=== PATIENT | female | born 1965 | race Caucasian/White ===

== ENCOUNTER 2018-02-20 14:07 | Emergency (ER) | payer BC ==
--- OUTSIDE RECORDS SUMMARY | 2018-02-20 14:32 | XMS REPORT ---
:1965 External Reference #:[id number] Author Organization [facility] Address [address] [place] [address] Phone [phone] Care Team Providers Name Role Phone Leticia Padilla M.D. 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 Primary Care Physician Unavailable Payers Type Date Identification Numbers Payment Provider Subscriber Commercial Effective: Policy Number: BC/BS Of GIULIANO Rogelio Lunsford Juvencoi 2017 [id number] PayID: [id number] [place] [id number] Problems Date Description Provider Status Onset: 10/04/2017 Type II diabetes mellitus Nilam Stack Active uncontrolled Onset: 10/04/2017 Major depressive disorder Leticia Padilla M.D. Active Onset: 10/04/2017 Obstructive sleep apnea syndrome Leticia Padilla M.D. Active Onset: 11/14/2017 Recurrent major depressive episodes Leticia Padilla M.D. Active Onset: 11/14/2017 Obesity Leticia Padilla M.D. 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 Cigarette Use Former Cigarette Smoker quit 2011 ETOH Use Occasional Recreational Drug Use Denies Drug Use Smoking Nonsmoker Daily Caffeine Some Caffeine Exercise Type/Frequency talking about going to gym walks in good weather Sun Exposure Uses sunscreen Seat Belt/Car Seat Always uses seat belt Personal Habits Text no guns in home Allergies, Adverse Reactions, Alerts Date Description Reaction Status Severity Comments 09/07/2017 NKDA active Medications Medication Date Status Form Strength Qnty SIG Indications Ordering Provider BD Disp 09/16/ Active Misc 31GX1/2" 1Box for use with Sunita [place] 2018 lantus solostar Jas, pen e11.9 last 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 evening Freestyle 09/13/ Active Device 1unit testing every Jenna Lite Blood 2018 s day or as Ryland, Glucose directed dx: Melissa-C Monitoring diabetes e11.9 System Freestyle 09/13/ Active Strips 1Box for blood sugar Jenna Lite Test 2018 [facility] as directed dx Afnp-C e11.9 last office visit 09/13/17 Wellbutrin 09/07/ Active Tablets ER 150mg 60tab take 1 by mouth [facility] 2017 12HR s twice daily Laurel, M.D. Melatonin ER 09/07/ Active Tablets ER 10mg 30tab 1 by mouth Arlene 2018 s every evening Kitty Chaidez NP Potassium 09/07/ Active Tablets 99mg 1 by mouth Jenna 2017 every day Nilam Marcelino Effexor XR 09/07/ Active Caps ER 37.5mg 30cap 1 by mouth Leticia 2017 24HR s every in the Laurel, morning M.D. Effexor XR 09/07/ Active Caps ER 150mg 30cap 1 by mouth Leticia 2017 24HR s every at night Laurel, M.D. Calcium 0000/ Active Tablets 300-300mg 1 by mouth Unknown Magnesium 0000 every day 750 Vitamin D3 0000/ Active Capsules 2000Unit 1 by mouth Unknown 0000 every day Echinacea / Active Capsules 400mg 1 by mouth Unknown 0000 twice daily Zantac 75 0000/ Active Tablets 75mg 1 tablet by Unknown 0000 mouth twice daily Metformin 00/ Active Tablets 1000mg 60tab take 1tab by Leticia HCL 0000 s mouth twice a Laurel, day with meals M.D. BD Disp 09/14/ Hx Misc 30G X 1Box for use with Sunita [place] 2017 - 07/26" lantus solostar Jas, 09/16/ pen e11.9 last AVIATION ORDNANCE OFFICER 2017 seen 09/13/17 BD Disp 09/13/ Hx Misc 25G X 1Box for use with Jenna [place] 2017 - 11/29" lantus solostar Ryland, 09/14/ Afnp-C 2017 Glipizide 09/07/ Hx Tablets 10mg 180ta 1 by mouth Jenna 2017 - twice a day [facility], 09/13/ Afnp-C 2017 Metformin 09/07/ Hx Tablets 1000mg 180ta take 1 07/26 Jenna HCL 2017 - tablets by [facility], 09/13/ mouth every Am, np-2017 1 tablet every PM Immunizations CPT Code Status Date Vaccine Lot # [id number] Given 09/02/2015 Influenza vac quadrivalent preservative free 3yrs and up 97716 Given 06/08/2012 Influenza vac quadrivalent preservative free 3yrs and up 19544 Given 02/29/2012 Tdap Tetanus, W Pertussis 25255 Given 10/16/2003 DT Immunization Vital Signs Date Vital Result Comment 01/23/2018 BP Systolic 136 mmHg BP Diastolic 60 mmHg Heart Rate 96 /min Body Temperature 97.9 F Respiratory Rate 16 /min Height 61 inches 5'1" stated 11/14/17 Weight 234.38 lb BMI (Body Mass Index) 44.3 kg/m2 11/14/2017 BP Systolic 138 mmHg BP Diastolic 80 mmHg Heart Rate 78 /min Body Temperature 97.9 F Respiratory Rate 16 /min Height 61 inches stated 11/14/17 Weight 233.12 lb BMI (Body Mass Index) 44.0 kg/m2 09/13/2017 BP Systolic 110 mmHg BP Diastolic 76 mmHg Heart Rate 68 /min Body Temperature 97.5 F Weight 238.25 lb 09/07/2017 BP Systolic 124 mmHg BP Diastolic 82 mmHg Heart Rate 92 /min Body Temperature 97.7 F Respiratory Rate 16 /min Weight 239.25 lb Results Test Date Test Result H/L Range Note Comprehensive Metabolic Prof 01/16/2018 Sodium 139 mEq/L 134-149 Potassium 4.9 mEq/L 3.6-5.5 Chloride 100 mEq/L 94-112 Carbon Dioxide 25 mEq/L 21-32 Glucose 229 mg/dL High 70-105 1 BUN 21 mg/dL 6-26 Creatinine 0.7 mg/dL 0.6-1.4 BUN/Creat Ratio 30.0 CALC 8.0-36.0 Calcium 9.5 mg/dL 8.6-10.2 Total Protein 6.5 g/dL 6.4-8.3 Albumin 4.1 g/dL 3.8-5.5 Globulin 2.4 g/dL 2.0-4.8 A/G Ratio 1.7 CALC 0.6-2.3 Alk. Phosphatase 82 U/L 30-110 Alt (SGPT) 16 U/L 7-35 Ast (Sgot) 12 U/L 5-34 Total Bilirubin 0.4 mg/dL 0.2-1.3 GFR Non- >60 ml/min/1.73m^ >=60 GFR >60 ml/min/1.73m^ >=60 Lipid Profile 01/16/2018 Cholesterol 164 mg/dL 120-200 Triglycerides 205 mg/dL High 30-200 HDL Cholesterol 49 mg/dL 30-85 LDL (Calculated) 74 CALC 0-129 VLDL Cholesterol 41 mg/dL 0-50 HDL Risk Factor 3.3 CALC 0.0-4.4 Laboratory test finding 01/16/2018 LDL, Direct 85 mg/dL 0-130 TSH 3.77 mIU/L 0.50-6.00 CBC Electronic Fma 01/16/2018 WBC 10.6 x10^3/UL High 4.0-10.0 RBC 5.56 x10^6/UL 3.93-6.00 HGB 15.1 g/dL 12.0-17.0 HCT 46 % 35-50 MCV 83.3 fL 80.0-95.0 MCH 27.2 pg 25.6-32.2 MCHC 32.6 g/dL 32.2-36.0 RDW-CV 13.3 % 11.6-14.4 PLT 340 x10^3/UL 163-400 MPV 10.0 fL 9.4-12.4 Jaz# 6.21 x10^3/UL High 1.56-6.13 Lymph# 3.36 x10^3/UL 1.18-3.74 Dakota# 0.68 x10^3/UL 0.24-0.82 Eos # 0.3 x10^3/UL 0.0-0.5 Baso # 0.05 x10^3/UL 0.01-0.08 Jaz% 58.6 % 34.0-70.0 Lymph % 31.8 % 20.0-52.0 Dakota% 6.4 % 5.0-12.0 Eos% 2.4 % 0.7-7.0 Baso% 0.5 % 0.1-1.2 Laboratory test finding 01/16/2018 Hemoglobin A1c (Fma) 10.4 % High 4.1- 5.7 Laboratory test finding 10/11/2017 Hemoglobin A1c (Fma) 11.7 % High 4.1- 5.7 Glucose Serum 388 High 70-105 Laboratory test finding 09/28/2017 Surgical Interface SEE RESULT BELOW 2 Order Comprehensive Metabolic 09/07/2017 Sodium 139 mEq/L 134-149 Prof Potassium 4.5 mEq/L 3.6-5.5 Chloride 99 mEq/L 94-112 Carbon Dioxide 27 mEq/L 21-32 Glucose 511 mg/dL High 70-105 3 BUN 18 mg/dL 6-26 Creatinine 0.6 mg/dL 0.6-1.4 BUN/Creat Ratio 30.0 CALC 8.0-36.0 Calcium 9.3 mg/dL 8.6-10.2 Total Protein 7.0 g/dL 6.4-8.3 Albumin 4.1 g/dL 3.8-5.5 Globulin 2.9 g/dL 2.0-4.8 A/G Ratio 1.4 CALC 0.6-2.3 Alk. Phosphatase 78 U/L 30-110 Alt (SGPT) 21 U/L 7-35 Ast (Sgot) 17 U/L 5-34 Total Bilirubin 0.3 mg/dL 0.2-1.3 GFR Non- >60 ml/min/1.73m^ >=60 GFR >60 ml/min/1.73m^ >=60 Lipid Profile 09/07/2017 Cholesterol 187 mg/dL 120-200 Triglycerides 578 mg/dL High 30-200 HDL Cholesterol 35 mg/dL 30-85 LDL (Calculated) 36 CALC 0-129 VLDL Cholesterol 116 mg/dL High 0-50 HDL Risk Factor 5.3 CALC High 0.0-4.4 Laboratory test finding 09/07/2017 LDL, Direct 86 mg/dL 0-130 Laboratory test finding 09/07/2017 Hemoglobin A1c (Fma) 11.6 % High 4.1- 5.7 CBC Electronic (Fma) 09/07/2017 WBC 12.0 High 3.6-9.6 RBC 5.51 3.90-5.70 Hemoglobin (Fma/CMC/CTX) 15.0 g/dL 12.1 - 17.2 Hematocrit (Fma/CMC/CTX) 45.9 % 36.1 - 50.3 Platelets 306 10^3/ul 150-400 Lymph% 35.8 % 17.0-48.0 Mixed% 5.2 Neutrophils % 59.0 Mean Corpuscular Vol 83 82.2-97.4 Mean Corpuscular Hemoglobin 27.3 Low 27.6-33.3 Mean Corpuscular Hemo Concen 33.0 32.0-36.0 RDW 13.9 High 11.6-13.7 Mean Platelet Volume 7.6 5.5-11.0 1 RESULTS VERIFIED BY REPEAT ANALYSIS 2 SEE RESULT BELOW Name: ROGELIO HENNING : [address]: Linnette Mike DO Acct: [id number] Unit: [id number] AGE: 51 Location: ENDO Re09/28/17 SEX: F Status: DEP REF SPEC: [id number] SABRINA: 09/28/17-1221 [facility] DR: Linnette Mike DO REQ: [id number] RECD: 09/28/17-6886 STATUS: BETI CAM DR: Leticia Zaman MD _ ORDERED: LEVEL 4 FINAL DIAGNOSIS Colon, ascending, biopsy: -- Tubular adenoma. -- No high grade dysplasia or malignancy. CLINICAL HISTORY Screening/Surveillance for malignancy in asymptomatic patient. POST-OPERATIVE DIAGNOSIS 5 mm ascending colon polyp; rare scattered diverticulosis; internal hemorrhoids. Conclusions/Plan: 5-10 years depending on pathology GROSS DESCRIPTION The specimen is received in formalin labeled, Ascending Colon Polyp, and consists of three speckled saxena-white irregular to polypoid soft tissue fragments ranging from 0.2 x 0.2 x 0.1 cm to 0.8 x 0.3 x 0.2 cm which are entirely submitted in one cassette. Signed (signature on file) Harpreet Haley MD 132[address] END OF REPORT DEPARTMENT OF PATHOLOGY, [address] [place] [address] Harpreet Haley M.D. Director [facility] # [id number] 3 RESULTS VERIFIED BY REPEAT ANALYSIS Procedures Date CPT Code Description Status 10/10/2017 Mammogram Completed 09/28/2017 Colonoscopy Completed Encounters Type Date Location Provider CPT E/M Dx Office Visit 11/14/2017 7:30p Main Office Leticia Padilla M.D. 71005 E11.65 E66.9 E78.1 F33.9 G47.33 Office Visit 09/13/2017 4:15p Main Office Nilam Stack 84289 E11.65 Office Visit 09/07/2017 3:15p Main Office Nilam Stack 10426 Z00.00 E11.9 E78.1 Plan of Care Future Appointment(s):05/02/2018 9:00 am - Nilam Stack at Main Zwahtu9504/25/2018 8:00 am - Leticia Padilla M.D. 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 If pap is normal, next PAP is due in 3-5 years. Recommend having annual mammogram, regularbreast and pelvic exams.E11.65 Type 2 diabetes mellitus with hyperglycemiaNew Labs:Comp Metabolic-ALL Lab CompaniLipid Panel-ALL Lab CompaniesHemoglobin A1c (Fma)Comments:Recommend yearly diabetic eye and foot exams, and check on blood pressure periodically. Goal blood sugar is less than 140 in the morning or A1c less than 7. Recommend monitoring portion size, decreased carbohydrate intake (breads, pasta , rice, candy, desserts, and sweetened beverages/alcohol) and routine daily exercise.Follow up:3 mo fasting labs [id number] Obesity, unspecifiedComments: Counseled on heart healthy diet such as Mediterranean diet. Eat protein and vegetables first then carbohydrates last. Get at least 150 minutes of moderate aerobic activity or 75 minutes of vigorous aerobic activity a week, or a combination of moderate and vigorous activity. General goal of 30 minutes of physical activity a day.F33.9 Major depressive disorder, recurrent, unspecifiedComments:stable on regimenAllComments:~B_~U_Medication Management~b_~ u_ Patient Understands medications she's taking? Yes No Are there Barriers to Adherence? Yes No Has the patient been asked about herbal supplements and therapies, and OTC meds? Yes No
[2018-02-20] MEDS ORDERED: Ibuprofen TAB* 600 MG PO ONE (14:46)
--- NOTE | 2018-02-20 14:52 | ED ---
Lower Extremity - HPI Summary HPI Summary: C/o right heel pain, that occasionally radiates up right posterior lower leg x 2 months. Heel pain is intermittent, but worse and more constant past few days. Pain worse in am when pt first gets out of bed, but pt states sometimes gets better with ambulation, sometimes worse. Pt unaware of pattern to pain onset. Denies trauma, fever, N/V, loss of sensation or function, cp, sob, abdo pain, hx of blood clots, estrogen intake, hx of CA, recent surgery or trauma, smoking. Med hx = DM2, depression. No anticoag. - History of Current Complaint Chief Complaint: EDSoftTissueLowExtr Stated Complaint: RT LOWER EXTREMITY PAIN Time Seen by Provider: 02/20/18 14:38 Hx Obtained From: Patient Mechanism Of Injury: Unknown Onset of Pain: Days Onset/Duration: Weeks Severity Initially: Mild Severity Currently: Moderate Pain Intensity: 6 Pain Scale Used: 0-10 Numeric Timing: Intermittent Location: Is Discrete @ Character Of Pain: Throbbing Aggravating Factor(s): Standing, Ambulation, Weight Bearing Alleviating Factor(s): Rest Able to Bear Weight: Yes - Risk Factors DVT Risk Factors: Negative Septic Arthritis Risk Factor: Immunosuppressed - Allergies/Home Medications Allergies/Adverse Reactions: Allergies Allergy/AdvReac Type Severity Reaction Status Date / Time No Known Allergies Allergy Verified 02/28/16 09:53 PMH/Surg Hx/FS Hx/Imm Hx Endocrine/Hematology History: Reports: Hx Diabetes History: Denies: Hx Dialysis Neurological History: Denies: Hx CVA - Surgical History Surgery Procedure, Year, and Place: bilateral carpal tunnel. dental surgery - Immunization History Immunizations Up to Date: Yes Infectious Disease History: No Infectious Disease History: Denies: Traveled Outside the [place] in Last 30 Days - Family History Known Family History: Positive: None - Social History Alcohol Use: Rare Substance Use Type: Reports: None Smoking Status (MU): Former Smoker Type: Cigarettes Review of Systems Constitutional: Negative Eyes: Negative ENT: Negative Cardiovascular: Negative Respiratory: Negative Gastrointestinal: Negative Genitourinary: Negative Musculoskeletal: Other Skin: Negative Neurological: Negative Psychological: Normal All Other Systems Reviewed And Are Negative: Yes Physical Exam - Summary Physical Exam Summary: NO erythema, ecchymosis, deformity, swelling, extra warmth to right foot, ankle , calf or knee. Mild tenderness to medial and lateral edges of heel. No pain with palpation of plantar surface of foot. No pain with palpation of achilles tendon. Achilles tendon intact. Normal jennings test. Mild tenderness to right calf with palpation posteriorly, and medially. PMS intact distally. Triage Information Reviewed: Yes Vital Signs On Initial Exam: Initial Vitals Temp Pulse Resp BP Pulse Ox 98.1 F 98 18 155/96 99 02/20/18 14:11 02/20/18 14:11 02/20/18 14:11 02/20/18 14:11 02/20/18 14:11 Vital Signs Reviewed: Yes Appearance: Positive: Well-Appearing Skin: Positive: Warm Head/Face: Positive: Normal Head/Face Inspection Eyes: Positive: Normal Neck: Positive: Supple Respiratory/Lung Sounds: Positive: Clear to Auscultation Cardiovascular: Positive: Normal Abdomen Description: Positive: Nontender Musculoskeletal: Positive: Normal Neurological: Positive: Normal Psychiatric: Positive: Normal AVPU Assessment: Alert - Janes Coma Scale Best Eye Response: 4 - Spontaneous Best Motor Response: 6 - Obeys Commands Best Verbal Response: 5 - Oriented Coma Scale Total: 15 Diagnostics - Vital Signs Vital Signs Temp Pulse Resp BP Pulse Ox 02/20/18 14:11 98.1 F 98 18 155/96 99 - Laboratory Lab Statement: Any lab studies that have been ordered have been reviewed, and results considered in the medical decision making process. - Radiology heel Xray Interpretation: No Acute Changes - heel spur Radiology Interpretation Completed By: Radiologist Lower Extremity Course/Dx - Course Course Of Treatment: C/o right heel pain, that occasionally radiates up right posterior lower leg x 2 months. Heel pain is intermittent, but worse and more constant past few days. Pain worse in am when pt first gets out of bed, but pt states sometimes gets better with ambulation, sometimes worse. Pt unaware of pattern to pain onset. Denies trauma, fever, N/V, loss of sensation or function , cp, sob, abdo pain, hx of blood clots, estrogen intake, hx of CA, recent surgery or trauma, smoking. Med hx = DM2, depression. No anticoag. NO erythema , ecchymosis, deformity, swelling, extra warmth to right foot, ankle, calf or knee. Mild tenderness to medial and lateral edges of heel. No pain with palpation of plantar surface of foot. No pain with palpation of achilles tendon. Achilles tendon intact. Normal jennings test. Mild tenderness to right calf with palpation posteriorly, and medially. PMS intact distally. Ibuprofen and ice for pain. Follow up with podiatry. - Diagnoses Provider Diagnoses: Heel spur Discharge - Sign-Out/Discharge Documenting (check all that apply): Patient Departure - Discharge Plan Condition: Stable Disposition: HOME Patient Education Materials: Heel Spur (ED) Referrals: Leticia Padilla MD [Primary Care Provider] - ELGIN CROSS [Doctor of Podiatric Medicine] - Additional Instructions: Ice and ibuprofen for heel pain. Follow up with [facility] Dr. Cross. Return to ED for any new or worsening symptoms, - Billing Disposition and Condition Condition: STABLE Disposition: Home
--- NOTE | 2018-02-20 15:24 | RAD ---
INDICATION: Atraumatic right calcaneus pain COMPARISON: None. TECHNIQUE: 4 views of the right heel were obtained. FINDINGS: The adequately corticated bones are properly aligned. Joint spaces appear maintained. No fracture, dislocation or focal bony abnormality is seen. There are enthesophytes at the origin of the plantar fascia and insertion site of the Achilles tendon. IMPRESSION: Enthesophyte formation at the right calcaneus in this otherwise nonacute radiograph. If the patient's symptoms persist, follow-up imaging is recommended.
[2018-02-20 16:09] VITALS: BP 0/0
== END 2018-02-20 16:00 | disposition home or self-care (01) ==
LOC: ED 14:07
DX: M77.31 Calcaneal spur, right foot (principal); Z87.891 Personal history of nicotine dependence
CPT/HCPCS: 99282; A9270-GY

== ENCOUNTER 2018-05-26 09:31 | Day surgery (SDC) | payer BC ==
[~2018-05-26 09:31] MED LIST: Buffered Lidocaine 0.9% SYRIN* 5 ML/SYR SYRINGE INTRADERM ONE; Lidocaine 1% INJ* 10 MG/ML 30 ML SDV ONE
[2018-05-26] MEDS ORDERED: ceFAZolin 2 GM PREMIX in ORs 2 GM/50 ML BAG IVPB ONE (09:48)
[2018-05-26] MEDS ORDERED: Dexamethasone IV* 4 MG/ML 1 ML (4 MG) ONE (10:59)
[2018-05-26] MEDS ORDERED: Bupivacaine 0.25% SDV* 30 ML ONE (10:59)
[2018-05-26] MEDS ORDERED: Midazolam* 1 MG/ML 2 ML VIAL (2 MG) ONE (11:14)
[2018-05-26] MEDS ORDERED: fentaNYL* 50 MCG/ML 2 ML VIAL (100 MCG VIAL) ONE (11:14)
[2018-05-26] MEDS ORDERED: Propofol* 10 MG/ML 20 ML BTL IV PUSH ONE (11:17)
[2018-05-26] MEDS ORDERED: Lidocaine 2% PF * 5 ML VIAL ONE (11:17)
[2018-05-26] MEDS ORDERED: Naloxone* 0.4 MG/ML 1 ML VIAL IV PRN (11:50)
[2018-05-26 12:56] VITALS: BP 124/83
--- NOTE | 2018-05-27 03:29 | OP ---
DATE OF OPERATION: 05/26/18 - [facility] DATE OF : 65 SURGEON: Jaya Elder DPM ANESTHESIA: MAC local. PRE-OP DIAGNOSIS: Right plantar fasciitis. POST-OP DIAGNOSIS: Right plantar fasciitis. OPERATIVE PROCEDURE: Plantar fasciotomy of the right foot. ESTIMATED BLOOD LOSS: Less than 10 cc. IV FLUID: LR 1000 cc. DRAINS: None. SPECIMENS: None. DESCRIPTION OF PROCEDURE: The patient was taken to the operating room and was placed in the supine position. A time-out was called and the OR team agreed. The right foot was then blocked with 10 cc of 1% lidocaine plain to the plantar aspect of the foot. The foot was then prepped and draped in a sterile manner. The right foot was then exsanguinated with an Esmarch bandage and the cuff was then inflated to 250 mmHg. Attention was then paid to the plantar aspect of the right foot, followed the medial band of the plantar fascia down to its plantar attachment up to the base of the plantar medial calcaneal tubercle. I went ahead and made a linear incision on the nonweightbearing surface of the heel. I went ahead and followed this by sharp and blunt dissection starting from the epidermis, dermis, subcutaneous tissue, and down the deep fascia. Once I was able to identify the medial band of the plantar fascia, I went ahead and incised that with a combination of #15 blade as well as a Metzenbaum scissors. Once I was able to cut all the fibers and I was able to view the underlying muscle belly, the procedure was then deemed completed. I irrigated the site, closed this wound in a layered anatomical fashion. The patient tolerated the procedure and anesthesia well. The patient was taken to Recovery in stable condition and was discharged in stable condition as well. [id number]/[facility] #: [id number] MTDD
== END 2018-05-26 12:56 | disposition home or self-care (01) ==
LOC: OR 09:31
PROVIDERS: ATTEND Podiatrist
DX: M72.2 Plantar fascial fibromatosis (principal); E11.9 Type 2 diabetes mellitus without complications; Z79.84 Long term (current) use of oral hypoglycemic drugs; Z87.891 Personal history of nicotine dependence
CPT/HCPCS: J0690; J1100; J2250; J2704; J3010

== ENCOUNTER 2020-02-01 13:28 | Inpatient (IN) ==
[2020-02-01] MEDS ORDERED: NS 0.9% 1000 ml BAG 1,000 ML IV ONE ×2 (15:43→19:58)
[2020-02-01 16:13] LABS: Hematocrit 46 % (35-47); Hemoglobin 15.1 g/dL (12.0-16.0); Mean Corpuscular HGB Conc 33 g/dL (31-36); Mean Corpuscular Hemoglobin 27 pg (27-31); Mean Corpuscular Volume 80 fL (80-97); Platelet Count 300 10^3/uL (150-450); Red Blood Count 5.65 10^6 /uL (3.70-4.87); Red Cell Distribution Width 15 % (10-15); White Blood Count 26.7 10^3/uL (3.5-10.8)
[2020-02-01 16:15] LABS: ABS Basophils 0.2 10^3/ul (0-0.2); ABS Monocytes 1.3 10^3/ul (0-0.8); Lymphocyte % 18.5 %
[2020-02-01 16:32] LABS: Albumin 4.1 g/dL (3.2-5.2); Albumin/Globulin Ratio 1.4 (1-3); BUN/Creatinine Ratio 18.8 (8-20); C Reactive Protein 29.38 mg/L (<8.01); Calcium 9.3 mg/dL (8.6-10.3); EGFR African American 84.3 (>60); EGFR Non-African American 69.7 (>60); Magnesium 1.5 mg/dL (1.9-2.7); Potassium 3.4 mmol/L (3.5-5.0); Total Bilirubin 0.2 mg/dL (0.2-1.0); Total Protein 7.1 g/dL (6.4-8.9)
[2020-02-01] MEDS ORDERED: Magnesium Sulfate IV 1GM/100ML 1 GM/100 ML BAG IV ONE (16:51)
[2020-02-01] MEDS ORDERED: Potassium Chlor 10 meq TAB PO ONE (16:51)
[2020-02-01] MEDS ORDERED: Iodixanol (CONTRAST) 320 MG/ML 100 ML SDV IV ONE (16:52)
[2020-02-01 17:00] LABS: Urine Appearance Cloudy; Urine Bilirubin Negative (Negative); Urine Blood Negative (Negative); Urine Color Yellow; Urine Glucose Negative (Negative); Urine Ketones Negative (Negative); Urine Nitrite Negative (Negative); Urine Protein 1+(30 mg/dL) (Negative); Urine Urobilinogen Negative (Negative)
[2020-02-01 17:02] LABS: ABS Eosinophils 6.8 10^3/ul (0-0.6); Eosinophil % 25.6 %
[2020-02-01 17:10] LABS: Urine Bacteria 2+ (Absent); Urine Red Blood Cell 1+(3-5/hpf) (Absent); Urine Squamous Epithelial Cell Present (Absent); Urine Transitional Epithelial Present (Absent); Urine White Blood Cell 3+(>20/hpf) (Absent)
[2020-02-01] MEDS ORDERED: Piperacillin/Tazobac ADVAN(*) 3.375 GM in NS 0.9% 100 ml BAG 100 ML IVPB ONE (18:06)
[2020-02-01] MEDS ORDERED: Morphine 2 MG/ML SYRINGE IV PRN (19:36)
[2020-02-01] MEDS ORDERED: Ondansetron 4 mg VIAL 2 MG/ML 2 ml VIAL IV PRN (19:36)
[2020-02-01] MEDS ORDERED: Zosyn per Pharmacy NOTE FOLLOW UP SCH (20:00)
[2020-02-01] MEDS ORDERED: Dextrose 50% Syringe 50 ml 25 GM/50 ML SYRINGE IV PUSH PRN (20:01)
[2020-02-01] MEDS: Insulin LISPRO 100 units/ml(*) SUBCUT SCH (21:46)
[2020-02-01] MEDS: Venlafaxine XR 75 mg PO SCH (22:21)
[2020-02-01] MEDS: Enoxaparin 40 MG/0.4 ML SYR(*) SUBCUT SCH (22:24)
[2020-02-01] MEDS: ZOSYN 3.375 GM Q8H per EXTENDED INFUSION IV SCH (22:25)
[2020-02-01] MEDS: NS 0.9% 1000 ml BAG 1,000 ML IV SCH (22:26)
[2020-02-01] MEDS: Insulin GLARGINE 100 un/ml (*) 10 ml VIAL SUBCUT SCH (23:01)
[2020-02-02] MEDS: ZOSYN 3.375 GM Q8H per EXTENDED INFUSION IV SCH ×3 (06:17→22:14)
[2020-02-02] MEDS: NS 0.9% 1000 ml BAG 1,000 ML IV SCH (08:20)
[2020-02-02] MEDS: Insulin LISPRO 100 units/ml(*) SUBCUT SCH ×4 (08:51→21:51)
[2020-02-02] MEDS ORDERED: Insulin GLARGINE 100 un/ml (*) 10 ml VIAL SUBCUT ONE (09:05)
[2020-02-02] MEDS ORDERED: Insulin GLARGINE 100 un/ml (*) 10 ml VIAL ONE (09:21)
[2020-02-02] MEDS: Insulin GLARGINE 100 un/ml (*) 10 ml VIAL SUBCUT SCH ×2 (09:32→21:56)
[2020-02-02 11:58] LABS: Hematocrit 40 % (35-47); Hemoglobin 13.2 g/dL (12.0-16.0); Mean Corpuscular HGB Conc 33 g/dL (31-36); Mean Corpuscular Hemoglobin 27 pg (27-31); Mean Corpuscular Volume 81 fL (80-97); Mean Platelet Volume 8.1 fL (7.4-10.4); Platelet Count 253 10^3/uL (150-450); Red Blood Count 4.91 10^6 /uL (3.70-4.87); Red Cell Distribution Width 16 % (10-15); White Blood Count 23.5 10^3/uL (3.5-10.8)
[2020-02-02 12:04] LABS: ABS Basophils 0.2 10^3/ul (0-0.2); ABS Lymphocytes 4.6 10^3/ul (1.0-4.8); ABS Monocytes 1.1 10^3/ul (0-0.8); Eosinophil % 25.3 %; Lymphocyte % 19.8 %
[2020-02-02 12:13] LABS: BUN/Creatinine Ratio 14.9 (8-20); EGFR Non-African American 81.8 (>60); Magnesium 1.7 mg/dL (1.9-2.7); Potassium 3.3 mmol/L (3.5-5.0)
[2020-02-02] MEDS: Venlafaxine XR 75 mg PO SCH (18:43)
[2020-02-02] MEDS: Enoxaparin 40 MG/0.4 ML SYR(*) SUBCUT SCH (21:56)
[2020-02-03] MEDS: NS 0.9% 1000 ml BAG 1,000 ML IV SCH (04:00)
[2020-02-03] MEDS: ZOSYN 3.375 GM Q8H per EXTENDED INFUSION IV SCH (06:15)
[2020-02-03] MEDS: Insulin LISPRO 100 units/ml(*) SUBCUT SCH ×2 (08:09→12:16)
[2020-02-03] MEDS: Insulin GLARGINE 100 un/ml (*) 10 ml VIAL SUBCUT SCH (09:01)
[2020-02-03 12:03] VITALS: BP 152/78
== END 2020-02-03 12:50 | disposition home or self-care (01) | DRG 720 ==
LOC: ED 13:28 → SSU 19:36
PROVIDERS: ADMIT Nurse Practitioner Adult Health; ATTEND Internal Medicine